=== PATIENT | female | born 1990 | race Two or more races ===

== ENCOUNTER 2019-12-11 19:54 | Emergency (ER) | payer SELFPAY ==
--- NOTE | 2019-12-11 22:21 | ER Document Report ---
ED Medical Screen (RME) - General Chief Complaint: Vaginal Bleeding Stated Complaint: VAGINAL BLEEDING Time Seen by Provider: 12/11/19 22:17 Mode of Arrival: Ambulatory Information source: Patient Notes: Patient presents 6 weeks G1, P0. Patient reports vaginal bleeding and cramping that started today. Patient denies any urinary symptoms. I have greeted and performed a rapid initial assessment of this patient. A comprehensive ED assessment and evaluation of the patient, analysis of test results and completion of the medical decision making process will be conducted by additional ED providers. - Related Data Allergies/Adverse Reactions: No Known Allergies Allergy (Unverified 12/11/19 22:12) Past Medical History - Social History Frequency of alcohol use: None Drug Abuse: None Physical Exam - Vital signs Vitals: Temp Pulse Resp BP Pulse Ox 98.2 F 87 18 135/76 H 100 12/11/19 20:04 12/11/19 20:04 12/11/19 20:04 12/11/19 20:04 12/11/19 20:04 - Abdominal Tenderness: Tender - Lower pelvic Course - Vital Signs Vital signs: Temp Pulse Resp BP Pulse Ox 98.2 F 87 18 135/76 H 100 12/11/19 20:04 12/11/19 20:04 12/11/19 20:04 12/11/19 20:04 12/11/19 20:04
[2019-12-12 00:26] VITALS: BP 107/63
--- NOTE | 2019-12-12 00:48 | RADIOLOGY REPORT (SQ) ---
EXAM DESCRIPTION: US TRANSVAGINAL COMPLETED DATE/TME: 12/11/2019 22:19 CLINICAL HISTORY: 29 years, Female, pelvic pain, vag bleeding COMPARISON: None. TECHNIQUE: Emergent ultrasound LIMITATIONS: None. FINDINGS: The uterus measures 9.0 x 5.3 x 4.0 cm. The myometrium is homogenous. There is a somewhat elongated intrauterine gestational sac with questionable tiny yolk sac. No detectable heart tones. Ultrasound age is 6 weeks 2 days. Left ovary is not well seen likely due to its position in the pelvis. The right ovary measures 3.9 x 2.3 x 2.7 cm. There is a 5.8 x 5.5 x 3.9 cm echogenic area in the left adnexa which could reflect complex/echogenic mass, possibly relating to dermoid cyst. No free fluid. Normal flow to the right ovary. IMPRESSION: There is an elongated intrauterine gestational sac with questionable tiny yolk sac. Ultrasound age 6 weeks 2 days. No detectable heart tones. Correlation with beta hCG levels is recommended. Short-term follow-up ultrasound may also be of benefit. Echogenic mass in the left adnexa as detailed above likely reflecting dermoid cyst. Continued follow-up recommended. Recommendations for f/u of ovarian complex cysts (1): Endometrioma: <= 7 cm: US f/u 6-12 wks. If not surgically resected, US f/u annually. >7 cm: Consider MR w/IVC or surgical evaluation. If not surgically resected, US f/u annually. Dermoid: <= 5 cm: MR w/IV contrast. If not surgically resected, US f/u annually. >5 cm: Surgical evaluation. If not surgically resected, MR w/IVC; then US f/u annually Indeterminate cyst - multiple thin <=3 mm septations: Any size in any age: Consider surgical evaluation. Indeterminate cyst - non-hyperechoic nodule w/o blood flow: Any size in any age: Consider MR w/IVC or surgical evaluation. Indeterminate cyst - other, not classic for but suggestive of hemorrhagic cyst, endometrioma or dermoid: Pre-menopause: <= 7 cm: US f/u 6-12 weeks. If unchanged, continue f/u with US or consider MR w/IVC. If these do not confirm endometrioma or dermoid, consider surgical evaluation. >7 cm: Consider MR w/IVC or surgical evaluation. Post-menopause (>=1 year from last menstrual period): Any size: Consider surgical evaluation. Cyst worrisome for malignancy (thick, irregular >=3 mm septations or nodule with blood flow): Any size in any age: Consider surgical evaluation. (1) Recommendations based upon the 2010 SRU Consensus Conference Statement on the Management of Asymptomatic Ovarian and Other Adnexal Cysts Imaged at US: Radiology. 2009;256(3):943-54 copyright 2011 [employer]- All Rights Reserved
[2019-12-12 02:31] LABS: ABSOLUTE EOSINOPHILS # (AUTO) 0.3 10^3/uL (0.0-0.6); ABSOLUTE LYMPHOCYTES (AUTO) 2.5 10^3/uL (0.5-4.7); ABSOLUTE MONOCYTES (AUTO) 0.7 10^3/uL (0.1-1.4); ABSOLUTE NEUT (AUTO) 6.6 10^3/uL (1.7-8.2); BASOPHILS % (AUTO) 0.4 % (0-2); EOSINOPHILS % (AUTO) 2.7 % (0-6); HEMOGLOBIN 13.2 g/dL (12.0-15.5); LYMPHOCYTES % (AUTO) 24.9 % (13-45); MEAN CORPUSCULAR HEMOGLOBIN 30.6 pg (27.0-33.4); MEAN CORPUSCULAR HGB CONC 33.7 g/dL (32.0-36.0); MEAN CORPUSCULAR VOLUME 91 fl (80-97); MONOCYTES % (AUTO) 7.1 % (3-13); PLATELET COUNT 281 10^3/uL (150-450); SEGMENTED NEUTROPHILS % (AUTO) 64.9 % (42-78); TOTAL CELLS COUNTED % (AUTO) 100 %; WHITE BLOOD COUNT 10.2 10^3/uL (4.0-10.5)
[2019-12-12 03:11] LABS: APPEARANCE,URINE SLIGHTLY-CLOUDY; BILIRUBIN,URINE NEGATIVE (NEGATIVE); COLOR,URINE YELLOW; GLUCOSE, URINE NEGATIVE (NEGATIVE); KETONES,URINE 20 mg/dL (NEGATIVE); LEUKOCYTE ESTERASE,URINE NEGATIVE (NEGATIVE); NITRITE,URINE NEGATIVE (NEGATIVE); PROTEIN,URINE NEGATIVE (NEGATIVE); URINE SPECIFIC GRAVITY 1.021; UROBILINOGEN,URINE NEGATIVE mg/dL (<2.0)
[2019-12-12 04:51] LABS: CHLAM PCR NOT DETECTED (NOT DETECT)
== END 2019-12-12 05:48 | disposition left against medical advice (07) ==
LOC: ER 19:54
DX: O20.9 Hemorrhage in early pregnancy, unspecified (principal); O26.891 Other specified pregnancy related conditions, first trimester; R10.2 Pelvic and perineal pain; Z3A.01 Less than 8 weeks gestation of pregnancy; Z53.20 Procedure and treatment not carried out because of patient's decision for unspecified reasons
CPT/HCPCS: 36415; 76817; 81001; 84702; 85025; 86900; 86901; 87491; 87591; 93976; 99281